=== PATIENT | male | born 1965 | race Caucasian/White ===

== ENCOUNTER 2017-02-02 03:09 | Emergency (ER) | payer MEDICARE ==
[2017-02-02] MEDS ORDERED: ASPIRIN EC81 MG PO (03:18)
[2017-02-02] MEDS ORDERED: BP MED PO (03:18)
[2017-02-02] MEDS ORDERED: ZESTORETIC 20-1 EAC3 PO (03:34)
== END 2017-02-02 04:18 ==
LOC: EDMED 03:09
DX: J02.9 Acute pharyngitis, unspecified (principal); I10 Essential (primary) hypertension; Z88.0 Allergy status to penicillin; Z79.82 Long term (current) use of aspirin; Z79.899 Other long term (current) drug therapy; F17.210 Nicotine dependence, cigarettes, uncomplicated